=== PATIENT | male | born 1965 | race Two or more races ===

== ENCOUNTER 2018-12-04 20:15 | Emergency (ER) | payer OTHER ==
[~2018-12-04] VITALS: Ht 180.3 cm; Wt 99.8 kg
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
[2018-12-04 20:20] VITALS: BP 162/94
--- NOTE | 2018-12-04 20:54 | NUR ---
ED Nurse Note: left for CT
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
--- NOTE | 2018-12-04 21:46 | Diagnostic Imaging Report ---
Indications: Head trauma, pain Technique: Spiral acquisitions obtained through the brain. Angled axial and coronal 5 x 5 mm slices were reconstructed. Total dose length product 1396 mGycm. CTDI vol(s) 6 mGy. Dose reduction achieved using automated exposure control Comparison: None. Findings: There are bilateral subdural hematomas present. On the left, this involves the frontal and anterior parietal convexity, and extends slightly into the anterior and middle fossae. This measures up to 7 mm thick. On the right, there is less extensive anterior frontal and parietal convexity subdural hematoma, also seen extending slightly into the anterior middle fossae, measuring up to 8 mm in thickness there is also blood along the anterior falx on both sides of the falx. This measures up to 5 mm in thickness. Small subdural hematoma is also seen posterior to the clivus in the midline, measuring 5 mm thick. There is questionably a thin rim of subdural blood running along the bilateral tentorium, left greater than right Subarachnoid blood is seen within high right parietal sulci. Less extensive subarachnoid blood is also seen in the high left parietal sulci. There is mild local mass effect, but no significant mass effect or midline shift. No acute parenchymal hemorrhage demonstrated. The ventricles are normal in size and configuration. The madrigal-white differentiation is preserved. There is a left temporal parietal craniotomy flaps noted. There is some soft tissue contusion in the high left parietal scalp. There is a nasal bone fracture noted. The mastoids are clear. No acute calvarial fracture. Impression: Positive for bilateral anterior convexity, bilateral parafalcine, bilateral peritentorial, and retroclival subdural hematomas, as described Bilateral right greater than left subarachnoid hemorrhages. Presumably posttraumatic No definite mass effect or midline shift Evidence of prior left sided craniotomy Nasal fracture-see separate facial CT report This agrees with the preliminary interpretation provided overnight by [facility] teleradiology service. The CT scanner at [facility] is accredited by the [employer] and the scans are performed using protocols designed to limit radiation exposure to as low as reasonably achievable to attain images of sufficient resolution adequate for diagnostic evaluation.
--- NOTE | 2018-12-04 21:57 | Diagnostic Imaging Report ---
Indications: Facial trauma Technique: Spiral images obtained through the facial bones. No IV contrast utilized. Multiplanar reconstructions were generated.Total dose length product 564 mGycm. CTDIvol(s) 24 mGy. Dose reduction achieved using automated exposure control Comparison: none Findings: There is a slightly inwardly displaced fracture of the nasal bone, predominantly on the left side. There is an associated fracture of the nasal septum which demonstrates deviation as a result. No definite acute orbital wall or sinus wall fracture demonstrated. There is slight inward displacement of the medial left orbital wall which does not appear acute. The nasal process of the maxilla appears intact. There is mild overlying soft tissue swelling. The optic globes and retroseptal orbits appear unremarkable. Included intracranial structures demonstrate a subdural hemorrhage as well as evidence of prior craniotomy. This is described in detail on separate CT brain report Impression: Positive for acute nasal fracture and nasal septal fracture Inward displacement of the medial left orbital wall, may be developmental or on the basis of old trauma, does not appear acute Evidence of intracranial hemorrhage and prior craniotomy-please refer to separate CT brain report The CT scanner at [facility] is accredited by the [employer] and the scans are performed using protocols designed to limit radiation exposure to as low as reasonably achievable to attain images of sufficient resolution adequate for diagnostic evaluation.
[2018-12-04] MEDS ORDERED: levETIRAcetam 1,000mg/NS100ml 100 ML IVPB ONE (22:00)
--- NOTE | 2018-12-04 22:00 | NUR ---
ED Nurse Note: IV line started to right hand 20 g. urine and blood sample sent down to lab. pt will be transfered to [facility] due to subdural hematoma requiring higher level of care.
[2018-12-04 22:19] LABS: APPEARANCE,URINE CLEAR; BILIRUBIN, URINE NEGATIVE (NEGATIVE); COLOR,URINE PALE YELLOW; GLUCOSE, URINE (UA) NEGATIVE (NEGATIVE); KETONES,URINE NEGATIVE (NEGATIVE); LEUKOCYTE ESTERASE ,URINE NEGATIVE (NEGATIVE); NITRITE,URINE NEGATIVE (NEGATIVE); PH,URINE 5 (4.5-8.0); PROTEIN,URINE 1+ (NEGATIVE); UROBILINOGEN,URINE NORMAL MG/DL (0.0-1.0)
[2018-12-04 22:19] LABS: BASOPHILS % (AUTO) 0.8 % (0.0-2.0); EOSINOPHILS % (AUTO) 0.5 % (0.0-3.0); HEMOGLOBIN 15.4 G/DL (14.2-18.0); LYMPHOCYTES % (AUTO) 13.4 % (20.0-45.0); MEAN CORPUSCULAR VOLUME 89 FL (80-99); MONOCYTES % (AUTO) 7.8 % (1.0-10.0); NEUTROPHILS % (AUTO) 77.5 % (45.0-75.0); PLATELET COUNT 238 K/UL (150-450); RED BLOOD COUNT 5.16 M/UL (4.70-6.10); RED CELL DISTRIBUTION WIDTH 11.4 % (11.6-14.8); WHITE BLOOD COUNT 10.1 K/UL (4.8-10.8)
[2018-12-04 22:26] LABS: INR 0.9 (0.9-1.1)
[2018-12-04 22:29] LABS: ANION GAP 10 mmol/L (5-15); BLOOD UREA NITROGEN 15 mg/dL (7-18); CALCIUM 9.2 MG/DL (8.5-10.1); CARBON DIOXIDE 26 MMOL/L (21-32); CHLORIDE 107 MMOL/L (98-107); POTASSIUM 4.1 MMOL/L (3.5-5.1); SODIUM 143 MMOL/L (136-145)
--- NOTE | 2018-12-04 22:29 | NUR ---
ED Nurse Note: IV keppra infused. pt seem to be lethargic. unresponsive to name and shaking. pt opens eyes with sternal rub. slow with verbal responses.
[2018-12-04 22:31] VITALS: BP 138/89
[2018-12-04 22:34] LABS: ALANINE AMINOTRANSFERASE 136 U/L (12-78); ALBUMIN 3.5 G/DL (3.4-5.0); ALBUMIN/GLOBULIN RATIO 0.9 (1.0-2.7); ALKALINE PHOSPHATASE 79 U/L (46-116); ASPARTATE AMINO TRANSFERASE 110 U/L (15-37); BILIRUBIN,TOTAL 0.4 MG/DL (0.2-1.0)
[2018-12-04 22:42] VITALS: BP 140/82
--- NOTE | 2018-12-04 22:42 | NUR ---
ED Nurse Note: due to changes in LOC, 911 was called. pt was then transfered to [facility] via [facility]. accompanied by JOHANN. IV remains to right hand 20g. pt VSS. pt took all his belongings with him.
--- NOTE | 2018-12-04 22:49 | NUR ---
ED Nurse Note: report given to TIAN Chen from [facility].
--- NOTE | 2018-12-08 00:19 | Cardiology Report ---
APPROVED REPORT EKG Measurement Heart [id number] Normal sinus rhythm Normal ECG
== END 2018-12-04 22:42 | disposition short-term general hospital (02) ==
LOC: EDBD 20:15 → EMR 21:20
DX: S06.5X0A Traumatic subdural hemorrhage without loss of consciousness, initial encounter (principal); S02.2XXA Fracture of nasal bones, initial encounter for closed fracture; S06.6X0A Traumatic subarachnoid hemorrhage without loss of consciousness, initial encounter; S02.85XA Fracture of orbit, unspecified, initial encounter for closed fracture; S01.511A Laceration without foreign body of lip, initial encounter; S60.512A Abrasion of left hand, initial encounter; S60.511A Abrasion of right hand, initial encounter; S80.212A Abrasion, left knee, initial encounter; I10 Essential (primary) hypertension; Z86.59 Personal history of other mental and behavioral disorders; Y09 Assault by unspecified means; Y92.811 Bus as the place of occurrence of the external cause
CPT/HCPCS: 36415; 70450; 70486; 80053; 80307; 81003; 85025; 85610; 85730; 93005; 96374; 99291; J1953